=== PATIENT | female | born 1990 | race American Indian/Alaskan Native ===

== ENCOUNTER 2018-12-08 16:43 | Emergency (ER) | payer OTHER ==
[2018-12-08 16:48] VITALS: BP 135/93
--- NOTE | 2018-12-08 18:33 | Emergency Department Report ---
HPI - General Chief Complaint: Dental/Oral Time Seen by Provider: 12/08/18 18:19 - HPI HPI: 28-year-old female presents to the emergency Department with a 24-hour period of some dental pain to the left lower gumline/teeth about the area of her premolars. She denies any obvious abscess or infection but says that it is painful and she thinks it is starting to swell. She denies any drooling or trismus, fever. She says she has one previous history of a dental abscess many years ago, but it was not in the same area. She does not have a dentist. No past medical history. Denies tobacco use. She took some ibuprofen for her symptoms without much relief. ED Past Medical Hx - Past Medical History Previous Medical History?: No - Surgical History Past Surgical History?: No - Social History Smoking Status: Never Smoker Substance Use Type: Alcohol - Medications Home Medications: Home Medications Medication Instructions Recorded Confirmed Last Taken Type Sulfamethoxazole/Trimethoprim 1 each PO BID #14 tablet 12/08/18 Unknown Rx [Bactrim DS TAB] ED Review of Systems ROS: Stated complaint: TOOTHACHE Other details as noted in HPI Comment: All other systems reviewed and negative Constitutional: denies: chills, fever ENT: dental pain. denies: ear pain, throat pain Skin: denies: rash, lesions Neurological: denies: headache, weakness Physical Exam - Physical Exam Vital Signs: Vital Signs 12/08/18 16:44 Temperature 98.2 F Pulse Rate 82 Respiratory 16 Rate Blood Pressure 135/93 O2 Sat by Pulse 99 Oximetry Physical Exam: GENERAL: The patient is well-developed well-nourished. HENT: Normocephalic. Atraumatic. Patient has moist mucous membranes. No drooling or trismus. Oral pharynx is clear. There are dental caries. There is tenderness to palpation along the left lower first and second premolar but no visible or palpable abscess. EYES: Extraocular motions are intact. Pupils equal reactive to light bilaterally. NECK: Supple. Trachea is midline. ABDOMEN: There is no abdominal distention. SKIN: Skin is warm and dry. NEURO: The patient is awake, alert, and oriented. The patient is cooperative. Normal speech. MUSCULOSKELETAL: There is no tenderness or deformity. There is no evidence of acute injury. ED Course Vital Signs 12/08/18 16:44 Temperature 98.2 F Pulse Rate 82 Respiratory 16 Rate Blood Pressure 135/93 O2 Sat by Pulse 99 Oximetry ED Medical Decision Making - Medical Decision Making Patient presents with a 24-hour period of some pain to the left lower gumline and teeth with concern for formation of a dental abscess. She has dental caries and some tenderness to palpation but no visible or palpable abscess at this time. She will be started on some antibiotics, will continue to use anti- inflammatories and has been instructed to follow-up with a dentist. She will return to the ER with any worsening of her symptoms or any acute distress. Vital signs stable. - Differential Diagnosis dental caries, dental abscess, aphthous ulcer Critical Care Time: No Critical care attestation.: If time is entered above; I have spent that time in minutes in the direct care of this critically ill patient, excluding procedure time. ED Disposition Clinical Impression: Toothache Disposition: TO HOME OR SELFCARE Is pt being admited?: No Condition: Stable Instructions: Dental Caries (ED), Toothache (ED) Additional Instructions: Please follow-up with a dentist in the next few days. Return to the emergency Department with any worsening of your symptoms or with any acute distress. Prescriptions: Sulfamethoxazole/Trimethoprim [Bactrim DS TAB] 1 each PO BID #14 tablet Referrals: [facility] [Outside] - 2-3 Days Time of Disposition: 18:33
== END 2018-12-08 18:30 | disposition home or self-care (01) ==
LOC: ED 16:43
DX: K08.89 Other specified disorders of teeth and supporting structures (principal)
CPT/HCPCS: 99282